=== PATIENT | male | born 1970 | race Caucasian/White ===

== ENCOUNTER 2020-09-18 18:30 | Emergency (ER) | payer MEDICARE, BC ==
[~2020-09-18] VITALS: Ht 172.7 cm; Wt 113.4 kg
[2020-09-18 18:52] LABS: HEMATOCRIT 34 % (39-51); LYMPHOCYTES # (AUTO) 3.1 /CMM (0.8-4.8); MEAN CORPUSCULAR VOLUME 77 fL (80-96); MONOCYTES # (AUTO) 0.7 /CMM (0.1-1.30)
--- NOTE | 2020-09-18 18:54 | NUR ---
BIB [facility] WAITING ROOM C/O 3 UNWITNESSED SEIZURES BS 177 IN FIELD. NO ORAL TRAUMA OR URINARY INCONT. PT AAOX3, RR EVEN & UNLABORED. DENIES CP, SOB, DIZZINESS, N/V AT THIS TIME. PT SEEN & EVAL'D BY DR. VILLAR. WILL CONT TO MONITOR.
[2020-09-18 18:55] LABS: BASOPHILS % (AUTO) 0.3 % (0.0-2.0); EOSINOPHILS % (AUTO) 1.8 % (0.0-6.0); HEMOGLOBIN 10.5 g/dL (13.5-17.5); LYMPHOCYTES % (AUTO) 55.7 % (20.0-44.0); MEAN CORPUSCULAR HGB CONC 31 g/dl (31.0-36.0); MONOCYTES % (AUTO) 12.7 % (2.0-12.0); NEUTROPHILS # (AUTO) 1.7 /CMM (1.8-8.9); NEUTROPHILS % (AUTO) 29.5 % (43.0-81.0); PLATELET COUNT (AUTO) 399 /CMM (150-450); RED BLOOD CELL COUNT(AUTO) 4.47 MIL/uL (4.5-6.0); WHITE BLOOD COUNT (AUTO) 5.6 K/uL (4.3-11.0)
[2020-09-18 19:04] LABS: CALCIUM, SERUM 8.4 mg/dL (8.5-10.1); CARBON DIOXIDE 24 mmol/L (21-32); CHLORIDE 108 mmol/L (98-107); GLUCOSE 154 mg/dL (74-106); POTASSIUM 3.6 mmol/L (3.5-5.1); SODIUM SERUM 145 mmol/L (136-145); UREA NITROGEN, BLOOD 12 mg/dL (7-18)
[2020-09-18 19:11] LABS: ALANINE AMINOTRANSFERASE 80 U/L (12-78); ALBUMIN 3.7 g/dL (3.4-5.0); ALCOHOL, BLOOD 336 mg/dL (0-0); ALKALINE PHOSPHATASE 79 U/L (46-116); ASPARTATE AMINOTRANSFERASE 110 U/L (15-37); BILIRUBIN,DIRECT 0.1 mg/dL (0.0-0.2); BILIRUBIN,TOTAL 0.3 mg/dL (0.2-1.0); TOTAL PROTEIN, SERUM 7.5 g/dL (6.4-8.2)
[2020-09-18 19:13] LABS: ACETAMINOPHEN < 10 ug/ml (10-30)
--- NOTE | 2020-09-18 19:46 | NUR ---
URINE COLLECTED AND SENT TO LAB
[2020-09-18 19:51] LABS: BILIRUBIN,URINE Negative (NEGATIVE); COLOR,URINE YELLOW (YELLOW); LEUKOCYTE ESTERASE ,URINE Negative (NEGATIVE); NITRITE, URINE Negative (NEGATIVE); PROTEIN,URINE Negative (NEGATIVE); UGLUCOSE Negative (NEGATIVE); UROBILINOGEN,URINE 0.2 EU/dL (0.2)
[2020-09-18 19:56] LABS: LYMPHOCYTES % (MANUAL) 54 % (16-48); NEUTROPHILS % (MANUAL) 29 (42-76)
[2020-09-18 19:57] LABS: EOSINOPHILS % (MANUAL) 1 % (0-4); MONOCYTES % (MANUAL) 16 % (0-11.0)
[2020-09-18] MEDS ORDERED: LORAZEPAM 1 MG TABLET PO ONE (21:00)
[2020-09-18] MEDS ORDERED: LORAZEPAM 1 MG TABLET ONE (21:14)
--- NOTE | 2020-09-18 21:19 | NUR ---
ATTEMPTED TO MEDICATE, PT SLEEPING, AROUSED TO NAME CALL BUT DOES NOT WANT MEDICATION AT THE MOMENT
--- NOTE | 2020-09-18 22:25 | NUR ---
CALL FROM LAB. RAPID COVID NEGATIVE.
--- NOTE | 2020-09-19 00:25 | NUR ---
pt remains in bed, resting comfortably. aroused to name call, vss
--- NOTE | 2020-09-19 06:32 | NUR ---
PT IN BED SLEEPING, NO SIGNS OF PAIN OR DISCOMFORT, WILL CONTINUE TO MONITOR
--- NOTE | 2020-09-19 09:36 | NUR ---
THE PATIENT WANTS TO GO TO [facility] VOL ADMISSION DUE TO HAVING SI WITH PLAN TO OD ON OVER THE COUNTER MEDICATIONS. SAFETY MEASURES TAKEN. DR LOCK AWARE.
--- NOTE | 2020-09-19 11:15 | NUR ---
SS Consult: SS Consult requested for SI & ETOH abuse. The pt. is 42-year old male who presents to the ED from [facility] (pending admission) due to unwitnessed seizures per EMR. SW met with pt. bedside. The pt. appears well-groomed A&O X4 and makes good eye contact. Pt.s mood is depressed with flat affect. The pt. denies current SI. Pt. states he has a Hx. of PTSD and has been prescribed psychotropic medications. However, pt. states he does not take them as prescribed. Pt. states he sees his [facility] [[address] [place] [address] ; ] about monthly and will see her in the next couple of weeks. Pt. denies SI/HI and denies hallucinations. SW offered to refer pt. to [facility] [place] [address] FAX:[phone]] for inpatient psychiatric treatment as that was his intention. Pt. refused stating he no longer has thoughts of suicide. Pt. also came in with high alcohol level. Pt. has sobered up. Pt. states he ubaldo with depressed mood by drinking alcohol. Pt. states he was drinking the past 2 days. SW provided pt. with addiction resources and pt. accepted them. SW offered pt. rehab referral and pt. refused and stated he will follow up with resources provided. Plan: Pt. stated he resides at [[address] [place] [address], [address]] alone and would like to return there once ready for D/C. Noted. is agreeable to plan. DARINEL provided pt. with mental health resources and pt. stated he will seek treatment at [facility] [[address] [place] [address] ] or Suicide Prevention Center (24 Hours).......[phone]; Suicide Prevention Crisis Center.......[phone] (24 Hours); if he ever feels unsafe. ADDICTION RESOURCES For Drugs and Alcohol [facility] Substance Abuse Helpline(SASH)-[facility] Outpatient treatment, residential treatment, recovery support for youth and adults [facility] www.actionfamilycPNMsoft.[employer] Inc. [facility] Teen programs for drug/alcohol education and support [facility] [place]. Program for adults, sliding scale provides support and education [facility] www.[facility].org [place]; Outpatient/residential treatment programs; transition to sober living Cri-Help www.cri-help.org [place]; Outpatient and residential treatment programs; transition to sober living I-ADARP Inter [place] [facility] Umer Oscar; Outpatient education and supportive programs for teens and adults [facility] www.oasiswomensrecsonoma speciality hospital.org [facility]; Residential treatment and work program for females only [facility] www.[facility].AlloCure [place]: Outpatient/residential treatment program for teens and young adults [facility] [place] www.[facility].org [place] Detox, inpatient, outpatient for adults and youth [facility], [facility] [place]; Outpatient programs and referrals to community residential programs. Alcoholics Anonymous -SFV information and meeting and schedules www.aa-intergroup.org Tt-Tmwb-Kmujpst https://al-anon.org/ [place] support groups for family of alcoholics. Marijuana Anonymous www.madistrict6.org -SFV listing of meetings Narcotics Anonymous www.na.org SOBER LIVING RESOURCES The Sober Living Network www.soberhousing.net A non-profit agency that provides resources to recovery and sober living homes throughout [facility] Sober Living Homes: A Work in Progress, Haydee Rivas [facility] Recovery Advocates, Vina Sobriety [facility] Celestina Womens Sober Living Homes: [facility] x [phone] My New BeginningASAF [facility] Coed Sober Living Homes: [facility] Counseling--Outpatient [facility] [address], [place] [address] (Specializes in in-depth psychotherapy for emotional distress: anxiety, depression, interpersonal conflicts, life transitions, childhood abuse) [facility] [address] [place] [address] (Assist with solving problem marital difficulties, separation & divorce, aging parents, & grief, chronic & terminal illness) [facility] [address] [place] [address] (Deal with loss & grief, anxiety, marital difficulties) Homebound/Mental Health Services [address] [facility], [address] [place] [address] (Provide in-home mental services to people who are incapable of leaving their homes) Organization for Needs of the Elderly Senior Service/Resource Center [address] [place] [address] [facility] [address] [place] [address] PSYCHIATRIC OUTPATIENT SERVICES [facility] Partial Hospitalization and Intensive Outpatient Program (Managed Care and [place] Only)[address] [facility]. [facility] [phone] [facility] Partial Hospitalization and Outpatient [id number] [facility]. [address] [place], [place] [phone] [facility] Partial Hospitalization and Outpatient Bsidwzw1657 [facility]. [place], [place] [phone] [facility] [id number] [place], [place] [phone] [facility] Partial Hospitalization and Outpatient Spteurm05313 LUNA [phone] Crisis and Hotline Telephone Numbers 24-Hour service unless stated [place] Crisis Hotlines: [employer]. Mental Health/Crisis Line........[phone] Suicide Prevention Center (24 Hours).......[phone] Suicide Prevention Crisis Center.......[phone] (24 Hours) Assaults Against Women Hotline.........102.396.8524 (24 Hours -- [facility] Women and Children Crisis Correction...........[phone] (24 Hours) Child Abuse Hotline............733.405.5775 [facility] of Childrens Services Rape Treatment Center (24 Hours)..........[phone] Alcoholics Anonymous (24 Hours)..........[phone] Cocaine Anonymous (24 Hours)............[phone] Narcotics Anonymous (24 Hours)..........[phone] MAIA MASSEY [facility] [address] [place] [address] Mental Health Services Terri Steinberg Bell [address] [place] [address] Services: Outpatient therapy for children, teens, young adults, adults, older adults, and families; Psychiatric services, medication support Crisis and Hotline Telephone Numbers 24-Hour service unless stated [place] Crisis Hotlines: [employer]. Mental Health/Crisis Line........932.366.2947 Suicide Prevention Center (24 Hours).......[phone] Suicide Prevention Crisis Center.......[phone] (24 Hours) Alcoholics Anonymous (24 Hours)..........[phone] National Crisis Hotlines: Alcohol and Drug Helpline - Provides referrals to local facilities where adolescents and adults can seek help. Brief intervention. [facility] Helpline National [place] for the Mentally Ill 4-578-995-TARAN National Youth Crisis Hotline [place] [facility]. Provides free information on specific disorders, referral directory to mental health providers, national directory of local mental health associations (M-F, 9-5 EST) National [place] of Mental Health Information Line: Provide sinformation and literature on mental illness by disorder-for professionals and general public.
[2020-09-19 11:36] VITALS: BP 127/75
--- NOTE | 2020-09-19 11:36 | NUR ---
The patient alert and oriented x4. Denies SI/HI. In room air and denies SOB. Respiration regular and unlabored. Patient discharged to home in stable condition. Written and verbal after care instructions given. Patient verbalizes understanding of instruction.
== END 2020-09-19 11:36 | disposition home or self-care (01) ==
LOC: ER 18:40
DX: F20.9 Schizophrenia, unspecified (principal); D64.9 Anemia, unspecified; G40.909 Epilepsy, unspecified, not intractable, without status epilepticus; F43.10 Post-traumatic stress disorder, unspecified; R00.0 Tachycardia, unspecified; Z20.822 Contact with and (suspected) exposure to COVID-19; R94.31 Abnormal electrocardiogram [ECG] [EKG]; F10.129 Alcohol abuse with intoxication, unspecified; Y90.8 Blood alcohol level of 240 mg/100 ml or more; R74.01 Elevation of levels of liver transaminase levels; F41.9 Anxiety disorder, unspecified; F32.9 Major depressive disorder, single episode, unspecified
CPT/HCPCS: 36415; 80048-TC; 80076-TC; 83735-TC; 85025-TC; C9803; G0480

== ENCOUNTER 2020-10-10 00:04 | Emergency (ER) | payer MEDICARE, BC ==
[~2020-10-10] VITALS: Ht 170.2 cm; Wt 90.7 kg
--- NOTE | 2020-10-10 00:56 | NUR ---
COVID SWAB COLLECTED AND SENT TO LAB
[2020-10-10 00:59] LABS: BILIRUBIN,URINE Negative (NEGATIVE); COLOR,URINE YELLOW (YELLOW); LEUKOCYTE ESTERASE ,URINE Negative (NEGATIVE); NITRITE, URINE Negative (NEGATIVE); PH,URINE 5.5 (5.0-8.0); PROTEIN,URINE 30 mg/dl (NEGATIVE); UGLUCOSE Negative (NEGATIVE); UROBILINOGEN,URINE 0.2 EU/dL (0.2)
--- NOTE | 2020-10-10 01:02 | NUR ---
PATIENT CAME TO THE ER C/O SUICIDAL IDEATION, PLANS TO OVERDOSE. PATIENT IS ALERT AND ORIENTED x4. AMBULATORY WITH A STEADY GAIT. PATIENT IS CHANGED INTO A GOWN. PERSONAL BELONGINGS ARE REMOVED FROM THE PATIENT AND TO A LOCKER. SIDE RAILS ARE UP FOR SAFETY. SITTER AT BEDSIDE.
[2020-10-10 01:10] LABS: BASOPHILS % (AUTO) 0.5 % (0.0-2.0); HEMATOCRIT 36 % (39-51); HEMOGLOBIN 11.4 g/dL (13.5-17.5); LYMPHOCYTES # (AUTO) 3.4 K/uL (0.8-4.8); LYMPHOCYTES % (AUTO) 52.4 % (20.0-44.0); MEAN CORPUSCULAR HGB CONC 32 g/dl (31.0-36.0); MEAN CORPUSCULAR VOLUME 77 fL (80-96); MONOCYTES # (AUTO) 0.8 K/uL (0.1-1.30); MONOCYTES % (AUTO) 11.6 % (2.0-12.0); NEUTROPHILS # (AUTO) 2.1 K/uL (1.8-8.9); NEUTROPHILS % (AUTO) 32.5 % (43.0-81.0); PLATELET COUNT (AUTO) 321 K/uL (150-450); RED BLOOD CELL COUNT(AUTO) 4.64 MIL/uL (4.5-6.0); WHITE BLOOD COUNT (AUTO) 6.5 K/uL (4.3-11.0)
[2020-10-10 01:22] LABS: POTASSIUM 3.9 mmol/L (3.5-5.1)
[2020-10-10 01:28] LABS: BILIRUBIN,DIRECT 0.1 mg/dL (0.0-0.2); BILIRUBIN,TOTAL 0.2 mg/dL (0.2-1.0); TOTAL PROTEIN, SERUM 7.9 g/dL (6.4-8.2)
[2020-10-10 01:32] LABS: CALCIUM, SERUM 8.4 mg/dL (8.5-10.1)
[2020-10-10 04:37] LABS: EOSINOPHILS % (MANUAL) 2 % (0-4); LYMPHOCYTES % (MANUAL) 49 % (16-48); MONOCYTES % (MANUAL) 11 % (0-11.0); NEUTROPHILS % (MANUAL) 32 (42-76); REACTIVE LYMPHOCYTES 6 % (0-0)
--- NOTE | 2020-10-10 05:25 | NUR ---
Patient is resting comfortably in bed with eyes closed. Easily aroused. VSS
--- NOTE | 2020-10-10 09:05 | NUR ---
Pt AAO, Appropriate and responsive awiting acceptance to [place] [facility] as voluntary psych. Ate breakfast 100%. Bathroom privilages
--- NOTE | 2020-10-10 11:24 | NUR ---
SS Consult: SS Consult requested for SI &Homelessness. The pt. is a 50-year old male who presents to the ED with C/O SI w/plan to OD. The pt. appears well-groomed, A&O X4 and makes poor eye contact. Pt.s mood is dysphoric, pt. is depressed with a flat affect and monotone. The pt. states he has been experiencing SI since yesterday and has a plan to OD on medication. Per pt., he is experiencing AH that whisper. Per pt., he is experiencing VH of shadows. DARINEL offered pt. voluntary admission to a psych facility for treatment and pt. is agreeable. Pt. states he lives alone at home [[address] [place] [address]; [phone]]. Pt. states he uses ETOH on the weekends and drinks about 1 pint of Vodka. Pt. is lacks insight as he states that alcohol is not a problem for him and pt. denies drug use.. Pt. states he has a Hx. of acute depression and is on Zoloft & Seroquel. Patient states he sees his psychiatrist, 1/ month. Pt. denies HI. Plan: Pt. [facility] [[address] [facility], [address] . DARINEL sent clinicals to ATTN:Intake. DARINEL referred pt. to [facility] [[address] [place] [address] FAX:[phone]] for inpatient psychiatric treatment. DARINEL provided pt. with addiction and mental health resources and he accepted them : ADDICTION RESOURCES For Drugs and Alcohol [facility] Substance Abuse Helpline([facility])-[facility] Outpatient treatment, residential treatment, recovery support for youth and adults [facility] www.33AcrossfaVigour.iolycounseling.CareView Communications [facility] [place] Teen programs for drug/alcohol education and support [facility] [place]. Program for adults, sliding scale provides support and education [facility] www.AxisMobileTauRx Pharmaceuticals.org [place]; Outpatient/residential treatment programs; transition to sober living Cri-Help www.cri-help.org [place]; Outpatient and residential treatment programs; transition to sober living I-ADARP Inter [place] [facility] Umer Zuniga; Outpatient education and supportive programs for teens and adults [facility] www.oasiswomensreclindsborg community hospitaly.org [place]; Residential treatment and work program for females only [place] www.ExteNet Systemsxharrisburg.org [place]: Outpatient/residential treatment program for teens and young adults [facility] www.[facility].org Tarzana Detox, inpatient, outpatient for adults and youth [facility], [facility]. [place]; Outpatient programs and referrals to community residential programs. Alcoholics Anonymous -SFV information and meeting and schedules www.aa-intergroup.org Vx-Btsn-Xgiloty https://al-anon.org/ [place] support groups for family of alcoholics. Marijuana Anonymous www.madistrict6.org -SFV listing of meetings Narcotics Anonymous www.na.org SOBER LIVING RESOURCES The Sober Living Network www.soberhousing.net A non-profit agency that provides resources to recovery and sober living homes throughout [facility], [facility] Sober Living Homes: A Work in ProgressHaydee [facility], [employer] [place] Recovery Advocates, Guild SobriCentral Mississippi Residential CenterUmer Womens Sober Living Homes: [facility] [place] x 3176 My New Beginning, [facility] [employer] [place] [facility] Coed Sober Living Homes: [facility] Counseling--Outpatient [facility] [address] [place] [address] (Specializes in in-depth psychotherapy for emotional distress: anxiety, depression, interpersonal conflicts, life transitions, childhood abuse) [facility] [address] [place] [address] (Assist with solving problem marital difficulties, separation & divorce, aging parents, & grief, chronic & terminal illness) [facility] [address] [place] [address] (Deal with loss & grief, anxiety, marital difficulties) Homebound/Mental Health Services [address] [facility] [address] [place] [address] (Provide in-home mental services to people who are incapable of leaving their homes) Organization for Needs of the Elderly Senior Service/Resource Center [address] [place] [address] [facility] [address] [place] [address] Mental Health Services [facility] [address] [place] [address] Services: Outpatient therapy for children, teens, young adults, adults, older adults, and families; Psychiatric services, medication support Psychiatric Outpatient Services [facility] Partial Hospitalization and Intensive Outpatient Program (Managed Care and [place] Only)[address] [facility] [facility] [phone] [facility] Partial Hospitalization and Outpatient [id number] [facility]. [address] [place], [place] [phone] [facility] Partial Hospitalization and Outpatient [id number] [facility] [place], [place] [phone] [facility] Mental Health [place] Lrd[address] [place], [place] [phone] [facility] Umer Oscar Partial Hospitalization and Outpatient [id number] LUNA [phone] Crisis and Hotline Telephone Numbers 24-Hour service unless stated [place] Crisis Hotlines: [facility] Mental Health/Crisis Line........[phone] Suicide Prevention Center (24 Hours).......[phone] Suicide Prevention Crisis Center.......[phone] (24 Hours) Assaults Against Women Hotline.........[phone] (24 Hours -- [facility]) Women and Children Crisis Mcc...........[phone] (24 Hours) Child Abuse Hotline............[phone] [facility] of Childrens Services Rape Treatment Center (24 Hours)..........[phone] Alcoholics Anonymous (24 Hours)..........[phone] Cocaine Anonymous (24 Hours)............[phone] Narcotics Anonymous (24 Hours)..........[phone] Maia Calvo [facility] [address], [place] [address]
--- NOTE | 2020-10-10 11:25 | NUR ---
DARINEL sent clinicals to ATTN:Intake for voluntary admission to [facility] [[address] [facility], [address] . DARINEL referred pt. to [facility] [[address] [place] [address] FAX:[phone]] for voluntary psychiatric treatment.
--- NOTE | 2020-10-10 13:30 | NUR ---
PT IS AWAKE. PROVIDED W/ MEAL TRAY.
--- NOTE | 2020-10-10 14:00 | NUR ---
DARINEL [facility] that the pt.'s ETOH level must be below 150 for [facility] DARINEL notified Mack in ED.
--- NOTE | 2020-10-10 14:24 | NUR ---
SW received a call ack from [facility] Syd Velásquez stating that pt. must be reevaluated for Psych after he is sober and they are also requesting EKG.
--- NOTE | 2020-10-10 16:30 | NUR ---
PT VERBALLY RESPONSIVE. DENIES SI/HI. AMBULATORY TO THE BATHROOM W/ STEADY GAIT. STABLE VITALS.
--- NOTE | 2020-10-10 16:41 | NUR ---
Pt. is sober and SW re-evaluated patient. Patient is A&O X 4. pPT. denying SI/HI and denying hallucinations. Pt. plans [facility]. SW notified who si agreeable.
--- NOTE | 2020-10-10 17:33 | NUR ---
PT IS MEDICALLY CLEARED. DENIES S//HI STATES WANTS TO GO HOME. VITALS STABLE.
[2020-10-10 17:34] VITALS: BP 118/84
== END 2020-10-10 17:35 | disposition home or self-care (01) ==
LOC: ER 00:14
DX: R45.851 Suicidal ideations (principal); G40.909 Epilepsy, unspecified, not intractable, without status epilepticus; F20.9 Schizophrenia, unspecified; F10.129 Alcohol abuse with intoxication, unspecified; Y90.8 Blood alcohol level of 240 mg/100 ml or more; F43.10 Post-traumatic stress disorder, unspecified; Z20.822 Contact with and (suspected) exposure to COVID-19
CPT/HCPCS: 36415; 80048-TC; 80076-TC; 85025-TC; C9803; G0480